=== PATIENT | male | born 1965 | race American Indian/Alaskan Native ===

== ENCOUNTER 2019-03-14 09:37 | Day surgery (SDC) | payer MEDICARE ==
[2019-03-14] MEDS ORDERED: APRACLONIDINE 1% OPHTH SOLN DROPERETTE OD ONE ×2 (11:31→12:22)
[2019-03-14] MEDS ORDERED: TROPICAMIDE 1% OPHTH SOLN 3 ML OD ONE (11:31)
[2019-03-14] MEDS ORDERED: PHENYLEPHRINE 10% OPHTH SOLN 5 ML OD ONE (11:31)
[2019-03-14 12:39] VITALS: BP 149/99
== END 2019-03-14 12:24 | disposition home or self-care (01) ==
LOC: OR 09:37
PROVIDERS: ATTEND Ophthalmology
DX: H26.491 Other secondary cataract, right eye (principal); E78.00 Pure hypercholesterolemia, unspecified; J45.909 Unspecified asthma, uncomplicated; K21.9 Gastro-esophageal reflux disease without esophagitis; M19.90 Unspecified osteoarthritis, unspecified site; Z98.890 Other specified postprocedural states; Z79.899 Other long term (current) drug therapy; Z91.013 Allergy to seafood; Z98.41 Cataract extraction status, right eye; Z98.42 Cataract extraction status, left eye